=== PATIENT | female | born 1995 | race Caucasian/White ===

== ENCOUNTER 2025-03-02 06:53 | Emergency (ER) | payer OTHER ==
[~2025-03-02] VITALS: Ht 165.1 cm; Wt 119.1 kg
[2025-03-02 06:55] VITALS: TEMP 98.2
[2025-03-02] MEDS ORDERED: antidepressant PO (06:58)
[2025-03-02] MEDS ORDERED: FLUO-341 PO (07:20)
[2025-03-02 07:23] LABS: PLATELET COUNT (AUTO) 324 K/uL (150-450); RED BLOOD CELL COUNT(AUTO) 4.86 MIL/uL (4.00-5.20); RED CELL DISTRIBUTION WIDTH 14.5 % (11.5-14.5); WHITE BLOOD COUNT (AUTO) 9.8 K/uL (4.5-11.0)
[2025-03-02 07:41] LABS: CALCIUM, TOTAL 8.5 mg/dL (8.8-10.5); CREATININE 0.72 mg/dL (0.60-1.30); GLOMERULAR FILTR. RATE CALC > 60 mL/min (>60); GLUCOSE,RANDOM 125 mg/dL (70-110); SODIUM SERUM 137 mmol/L (136-145); UREA NITROGEN, BLOOD 7 mg/dL (7-18)
[2025-03-02] MEDS ORDERED: IOHEXOL 350 MG/ML 100 ML VIAL ONE (07:49)
[2025-03-02] MEDS ORDERED: SODIUM CHLORIDE 0.9% 100 ML ONE (07:49)
[2025-03-02] MEDS: ACETAMINOPHEN 500 MG TABLET PO ONE (08:47)
[2025-03-02] MEDS: SODIUM CHLORIDE 0.9% 1,000 ML IV ONE (08:47)
[2025-03-02 10:04] LABS: ASPARTATE AMINOTRANSFERASE 17.0 U/L (15-37); TOTAL PROTEIN, SERUM 8.5 g/dL (6.4-8.2)
[2025-03-02 11:22] LABS: APPEARANCE,URINE CLEAR (CLEAR); GLUCOSE, URINE (UA) TRACE mg/dL (NEGATIVE); LEUKOCYTE ESTERASE ,URINE NEGATIVE (NEGATIVE); NITRATE,URINE NEGATIVE (NEGATIVE); OCCULT BLOOD,URINE NEGATIVE (NEGATIVE); SPECIFIC GRAVITIY, URINE > 1.030 (1.003-1.030)
[2025-03-02] MEDS ORDERED: ACET-3385 PO (11:33)
[2025-03-02 11:45] VITALS: BP 134/72; PULSE 89; RESP 16; O2SAT 99
== END 2025-03-02 11:53 | disposition home or self-care (01) ==
LOC: EMS 06:53
DX: R10.32 Left lower quadrant pain (principal); R14.0 Abdominal distension (gaseous); F41.9 Anxiety disorder, unspecified; F32.A Depression, unspecified; Z90.49 Acquired absence of other specified parts of digestive tract
CPT/HCPCS: 99285; 74177; 96360; 76830; 76856; 80048; 80076; 81003; 83690; 85025; 36415; 84703; Q9967; J7030; J7050